=== PATIENT | female | born 1965 | race African-American/Black ===

== ENCOUNTER 2020-02-21 13:57 | Outpatient (CLI) | payer OTHER, MEDICAID, SELFPAY ==
--- NOTE | ~2020-02-21 | CT_ITS ---
EXAMINATION: CT soft tissue neck wo con DATE: 02/21/2020 14:45 INDICATION: Numbness and tingling in the arms. Paresthesias of skin. TECHNIQUE: Computed tomography (CT) of the neck was performed without intravenous contrast. Automated exposure control and iterative reconstruction technique were employed. The dose-length product was 6 01.10 mGy-cm. 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 There are no pathologica lly enlarged lymph nodes. There is mucosal thickening in the paranasal sinuses. The mastoid air cells are normal. The orbits are normal. There is kyphosis and 8 degrees levocurvature of cervical spine. Vertebral body heights are normal. There is mildly decreased disc height at C5-C6 and C6-C7. There is multilevel mild uncovertebral joint osteoarthritis. At C6-C7, there is moderate right and mild left uncovertebral joint osteoarthritis. At C7-T1, there is moderate right and mild left facet joint osteo arthritis. There is mild right neural foraminal stenosis at C5-C6 and C6-7 C7. There is mild central canal stenosis at C6-C7. IMPRESSION: 1. Mild cervical spondylosis. Reviewed, dictated and finalized at location A.
== END 2020-02-21 13:58 | disposition home or self-care (01) ==
PROVIDERS: Visit Provider Internal Medicine Gastroenterology
DX: R20.2 Paresthesia of skin (principal); M47.892 Other spondylosis, cervical region
CPT/HCPCS: 70490